=== PATIENT | female | born 1970 | race Caucasian/White ===

== ENCOUNTER 2017-02-27 06:42 | Day surgery (SDC) | payer BC ==
[~2017-02-27 06:42] MED LIST: Lactated Ringers 1,000 ML IV SCH; Lidocaine 1%/Sod Bicarbonate in NS 8.4% 1 ML Syringe PRN; Sodium Chloride 0.9% 10 ML Syringe FLUSH PRN
[2017-02-27] MEDS ORDERED: Lidocaine 1% 50 ML MDV ONE (06:50)
[2017-02-27] MEDS ORDERED: Bupivacaine 0.5% 30 ML SDV ONE (06:50)
[2017-02-27] MEDS ORDERED: Propofol 200 MG/20 ML SDV ONE (07:05)
[2017-02-27] MEDS ORDERED: Ondansetron 4 MG/2 ML SDV ONE (07:05)
[2017-02-27] MEDS ORDERED: ceFAZolin 1 GM Vial ONE (07:05)
[2017-02-27] MEDS ORDERED: Rocuronium 50 MG/5 ML Vial ONE (07:05)
[2017-02-27] MEDS ORDERED: Lactated Ringers 1,000 ML ONE (07:05)
[2017-02-27] MEDS ORDERED: Dexamethasone 4 MG/ML SDV ONE (07:05)
[2017-02-27] MEDS ORDERED: Midazolam 1 MG/ML 2 ML SDV ONE (07:06)
[2017-02-27] MEDS ORDERED: Ketorolac 30 MG/ML SDV ONE (07:06)
[2017-02-27] MEDS ORDERED: Lidocaine 1% 4 ML ONE (07:06)
[2017-02-27] MEDS ORDERED: fentaNYL 250 MCG/5 ML SDV ONE (07:06)
[2017-02-27] MEDS ORDERED: Famotidine 20 MG/2 ML SDV ONE (07:29)
[2017-02-27] MEDS ORDERED: Metoclopramide 10 MG/2 ML SDV ONE (07:46)
[2017-02-27] MEDS ORDERED: Succinylcholine 200 MG/10 ML MDV ONE (07:47)
--- NOTE | 2017-02-27 07:50 | PCM.PREANE ---
Preanesthetic Assessment - Anesthesia/Transfusion/Family Hx Anesthesia History: Prior Anesthesia Without Reaction Family History of Anesthesia Reaction: No Transfusion History: No Prior Transfusion(s) Intubation History: Unknown - Review of Systems General: No Symptoms Pulmonary: No Symptoms, Other (Sleep apnea/CPAP) Cardiovascular: No Symptoms Gastrointestinal: No Symptoms Neurological: No Symptoms Other: Reports: None, Depression, Anxiety - Physical Assessment NPO Status Date: 02/26/17 NPO Status Time: 22:00 Pulse: 66 O2 Sat by Pulse Oximetry: 96 Respiratory Rate: 16 Blood Pressure: 132/76 Temperature: 37.2 C Weight: 119 kg ASA Class: 2 Mental Status: Alert & Oriented x3 Airway Class: Mallampati = 1 Dentition: Reports: Normal Dentition Thyro-Mental Finger Breadths: 2 Mouth Opening Finger Breadths: 3 ROM/Head Extension: Full Lungs: Clear to Auscultation, Normal Respiratory Effort Cardiovascular: Regular Rate, Regular Rhythm - Lab Values: Entered. K 3.3 discussed with patient and her . She is aware and was instructed to increase potassium in her diet. Her primary care physician is aware. - Imaging/EKG Impressions: Reviewed - Allergies Allergies/Adverse Reactions: Allergies Allergy/AdvReac Type Severity Reaction Status Date / Time No Known Allergies Allergy Verified 02/27/17 08:04 - Anesthesia Plan Pre-Op Medication Ordered: Antacids, Anxiolytic - Acknowledgements Anesthesia Type Planned: General Anesthesia Pt an Appropriate Candidate for the Planned Anesthesia: Yes Alternatives and Risks of Anesthesia Discussed w Pt/Guardian: Yes Pt/Guardian Understands and Agrees with Anesthesia Plan: Yes PreAnesthesia Questionnaire HEENT History: Reports: None Cardiovascular History: Reports: Hypertension Respiratory History: Reports: Sleep Apnea Genitourinary History: Reports: None [employer] History: Reports: Musculoskeletal History: Reports: Other (See Below) Other Musculoskeletal History: degenerative disc disease Neurological History: Reports: None Psychiatric History: Reports: Anxiety, Depression Endocrine/Metabolic History: Reports: None Hematologic History: Reports: None Immunologic History: Reports: None Oncologic (Cancer) History: Reports: None Dermatologic History: Reports: None - Past Surgical History Head Surgeries/Procedures: Reports: None HEENT Surgical History: Reports: None Cardiovascular Surgical History: Reports: None Respiratory Surgical History: Reports: None GI Surgical History: Reports: Cholecystectomy, Colonoscopy Female Surgical History: Reports: Section, Hysterectomy Endocrine Surgical History: Reports: None Neurological Surgical History: Reports: None Musculoskeletal Surgical History: Reports: None Oncologic Surgical History: Reports: None - SUBSTANCE USE Smoking Status *Q: Current Every Day Smoker Tobacco Use Within Last Twelve Months: Cigarettes Recreational Drug Use History: No - HOME MEDS Home Medications: Home Meds ALPRAZolam [Alprazolam] 0.5 mg PO BID PRN 02/26/17 [History] Acetaminophen [Tylenol] 650 g PO QID PRN 02/26/17 [History] Cholecalciferol (Vitamin D3) [Vitamin D3] 5,000 unit PO DAILY 02/26/17 [History] Escitalopram Oxalate [Escitalopram Oxalate] 20 mg PO DAILY 02/26/17 [History] Fish Oil/Gatzke-3 Fatty Acids [Fish Oil 1,000 MG] 1,000 mg PO DAILY 02/26/17 [ History] Fluticasone Propionate [Flonase] 1 spray NASBOTH BID 02/26/17 [History] Hydrochlorothiazide [Hydrochlorothiazide] 12.5 mg PO DAILY 02/26/17 [History] Losartan/Hydrochlorothiazide [Losartan-HCTZ 50-12.5 MG] 1 tab PO DAILY 02/26/17 [History] Multivitamin [Daily Shadi] 1 tab PO DAILY 02/26/17 [History] Progesterone,Micronized [Progesterone] 100 mg PO DAILY 02/26/17 [History] Ranitidine HCl [Zantac] 300 mg PO BID 02/26/17 [History] Saw Locke 160 mg PO DAILY 02/26/17 [History] amLODIPine Besylate [Amlodipine Besylate] 10 mg PO DAILY 02/26/17 [History] - CURRENT (IN HOUSE) MEDS Current Meds: Current Medications Lactated Ringer's (Ringers, Lactated) 1,000 mls @ 125 mls/hr IV ASDIRECTED CARMEN Stop: 02/27/17 23:00 Last Admin: 02/27/17 07:30 Dose: 125 mls/hr Lidocaine/Sodium Bicarbonate (Buffered Lidocaine 1% In Ns 8.4%) 0.25 ml .XX ONETIME PRN PRN Reason: Prior to IV Start Stop: 02/27/17 18:00 Last Admin: 02/27/17 07:29 Dose: 0.25 ml Sodium Chloride (Saline Flush) 10 ml FLUSH ASDIRECTED PRN PRN Reason: Keep Vein Open Stop: 02/27/17 18:00 Discontinued Medications Bupivacaine HCl (Marcaine 0.5%) Confirm Administered Dose 30 ml .ROUTE .ST-MED ONE Stop: 02/27/17 06:51 Cefazolin Sodium (Ancef) Confirm Administered Dose 2 gm .ROUTE .STK-MED ONE Stop: 02/27/17 07:06 Dexamethasone (Dexamethasone) Confirm Administered Dose 4 mg .ROUTE .ST-MED ONE Stop: 02/27/17 07:06 Famotidine (Pepcid) Confirm Administered Dose 20 mg .ROUTE .ST-MED ONE Stop: 02/27/17 07:30 Fentanyl (Sublimaze) Confirm Administered Dose 250 mcg .ROUTE .ST-MED ONE Stop: 02/27/17 07:07 Lactated Ringer's (Ringers, Lactated) Confirm Administered Dose 1,000 mls @ as directed .ROUTE .ST-MED ONE Stop: 02/27/17 07:06 Lidocaine HCl (Xylocaine-Mpf 1%) Confirm Administered Dose 4 mls @ as directed .ROUTE .ST-MED ONE Stop: 02/27/17 07:07 Ketorolac Tromethamine (Toradol) Confirm Administered Dose 30 mg .ROUTE .ST- MED ONE Stop: 02/27/17 07:07 Lidocaine HCl (Xylocaine 1%) Confirm Administered Dose 50 ml .ROUTE .ST-MED ONE Stop: 02/27/17 06:51 Metoclopramide HCl (Reglan) Confirm Administered Dose 10 mg .ROUTE .ST-MED ONE Stop: 02/27/17 07:47 Midazolam HCl (Versed 1 Mg/Ml) Confirm Administered Dose 2 mg .ROUTE .ST-MED ONE Stop: 02/27/17 07:07 Ondansetron HCl (Zofran) Confirm Administered Dose 4 mg .ROUTE .ST-MED ONE Stop: 02/27/17 07:06 Propofol (Diprivan 20 Ml) Confirm Administered Dose 400 mg .ROUTE .STK-MED ONE Stop: 02/27/17 07:06 Rocuronium Frohna (Zemuron) Confirm Administered Dose 50 mg .ROUTE .STK-MED ONE Stop: 02/27/17 07:06 Succinylcholine Chloride (Quelicin) Confirm Administered Dose 200 mg .ROUTE .STK -MED ONE Stop: 02/27/17 07:48
[2017-02-27] MEDS ORDERED: fentaNYL 100 MCG/2 ML SDV IVPUSH PRN (09:08)
[2017-02-27] MEDS ORDERED: HYDROmorphone 0.5 MG/0.5 ML Syringe IVPUSH PRN (09:08)
[2017-02-27] MEDS ORDERED: diphenhydrAMINE 50 MG/ML SDV IVPUSH PRN (09:08)
[2017-02-27] MEDS ORDERED: fentaNYL 100 MCG/2 ML SDV ONE (09:48)
[2017-02-27] MEDS ORDERED: HYDROmorphone 1 MG/ML Syringe ONE (10:15)
--- NOTE | 2017-02-27 10:20 | CR ---
Left calcaneus: Two fluoroscopic spot views were obtained centered to the left calcaneus in lateral projection. Study obtained utilizing C-arm device. Study shows plantar spur. Previous surgery is noted within the posterior calcaneus. Soft tissue air noted from the surgical procedure. Fluoroscopy time given as 2.1 seconds. Impression: 1. Operative study as noted above. Diagnostic code #2
--- NOTE | 2017-02-27 10:32 | PCM.OPNOTE ---
- General Post-Op/Procedure Note Date of Surgery/Procedure: 02/27/17 Operative Procedure(s): 1.) Debridement/Decompression Achilles Tendon with Re- attachment with Suture Bridge, LEFT heel. 2.) Retro-Calcaneal Exostectomy, LEFT heel. 3.) Gastroc-Recessio, LEFT leg Pre Op Diagnosis: 1.) Calcific Achilles Tendonosis, LEFT heel. 2.) Achilles Tendonosis, LEFT heel. 3.) Gastrocnemius Equinus, LEFT heel Post-Op Diagnosis: Same Anesthesia Technique: General LMA, Local (10ccs 1:1 mixture 1% Lidocaine pl. + 0.5% Marcaine pl. - preoperatively 10ccs 1:1 mixture 1% Lidocaine pl. + 0.5% Marcaine pl. - postoperatively), MAC Primary Surgeon: García De Santiago II Anesthesia Provider: Judy Complications: None Condition: Good Free Text/Narrative:: Patient left the OR for recovery, PACU, with vital signs stable & vascular status grossly intact, LEFT foot/ankle.
[2017-02-27] MEDS ORDERED: Albuterol 6.7 GM Inhaler INH ONE (10:35)
--- NOTE | 2017-02-27 10:38 | PCM.POSTAN ---
POST ANESTHESIA ASSESSMENT - MENTAL STATUS Mental Status: Alert, Oriented - VITAL SIGNS Pulse Rate: 103 SaO2: 96 Resp Rate: 13 Blood Pressure: 137/89 Temperature: 37.2 C - RESPIRATORY Respiratory Status: Respiratory Rate WNL, Airway Patent, O2 Saturation Stable, Supplemental Oxygen - CARDIOVASCULAR CV Status: Pulse Rate WNL, Blood Pressure Stable - GASTROINTESTINAL GI Status: No Symptoms - PAIN Pain Score: 0 - POST OP HYDRATION Hydration Status: Adequate & Stable
[2017-02-27] MEDS ORDERED: Acetaminophen/oxyCODONE 325-5 MG Tab PO ONE (11:45)
[2017-02-27] MEDS ORDERED: Acetaminophen/oxyCODONE 325-5 MG Tab PO SCH (12:30)
--- NOTE | 2017-02-27 13:39 | PCM48HPAN ---
Post Anesthesia Note - EVALUATION WITHIN 48HRS OF ANESTHETIC Vital Signs in Normal Range: Yes Patient Participated in Evaluation: Yes Respiratory Function Stable: Yes Airway Patent: Yes Cardiovascular Function Stable: Yes Hydration Status Stable: Yes Pain Control Satisfactory: Yes Nausea and Vomiting Control Satisfactory: Yes Mental Status Recovered: Yes
--- NOTE | 2017-03-03 08:42 | OR ---
DATE OF OPERATION: 02/27/2017 SURGEON: García De Santiago II, DPM LOCATION: [facility]. ANESTHESIA: LMA general. ANESTHESIA PROVIDER: Brianna Albright CRNA. HEMOSTASIS: Left pneumatic thigh tourniquet at 300 mmHg pressure. PREOPERATIVE DIAGNOSIS: 1. 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 2. Painful and symptomatic Achilles tendinosis, left heel. 3. Painful and symptomatic gastrocnemius equinus, left leg. POSTOPERATIVE DIAGNOSIS: 1. 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 2. Painful and symptomatic Achilles tendinosis, left heel. 3. Painful and symptomatic gastrocnemius equinus, left leg. OPERATION PERFORMED: 1. Debridement and decompression Achilles tendon with reattachment using Arthrex suture bridge. 2. Retrocalcaneal exostectomy, left heel. 3. Gastroc recession, left leg. DESCRIPTION OF PROCEDURE: Upon arrival and admission to the hospital, the patient was examined and cleared for surgery by the assigned anesthesia provider. IV access was obtained in the preoperative area after which the patient received prophylactic antibiotics consisting of 3 g of Ancef IV piggyback. The patient was then brought to the OR via gurney and transferred onto the operating room table in the supine position. The patient was then given a combination of sedations and was intubated for LMA general anesthesia. The patient was then repositioned in the prone position. The patient then received 10 mL of a 1:1 mixture of 1% lidocaine plain and 0.5% Marcaine plain in the form of a local infiltrative block at the posterior aspect of the left heel and at the incision site 17 cm proximal to the insertion of the Achilles tendon for the gastroc recession. The left lower extremity was then wrapped at the thigh with cotton Webril padding in preparation for nonsterile pneumatic thigh tourniquet, which was then draped with a secure towel. The left lower extremity was then prepped and draped in the usual aseptic manner. The left lower extremity was then elevated and exsanguinated with the use of an Esmarch bandage before inflating the pneumatic thigh tourniquet to 300 mmHg pressure. The Esmarch was removed and the left lower extremity was placed back to the level of the operating room table. Attention was then directed to the posterior aspect of the left lower extremity at the gastroc aponeurosis approximately 15-17 cm from the insertion site of the Achilles tendon. An approximately 4 cm linear incision was made parallel to the longitudinal axis of the left lower extremity. This was a controlled depth skin incision taken down to the level of the subcutaneous structures with care taken to retract the vital neurovascular structures within the area as well as to cauterize and ligate all superficial bleeders as deemed necessary. Continued soft tissue dissection was then taken down to the level of the gastrocnemius aponeurosis where it was incised and released from medial to lateral producing a gap of approximately 1 cm with hyperdorsiflexion. Attention was then directed to the posterior aspect of the left heel where an approximately 7 cm curvilinear incision was created medial to the Montana's deformity and overlying the distal 1/3rd of the Achilles tendon, and then being brought perpendicular to a longitudinal axis just 1 cm distal to the insertion of the Achilles tendon. This was a controlled depth skin incision taken down to the level of subcutaneous structures with care taken to retract vital neurovascular structures within the area as well as to cauterize and ligate all superficial bleeders as deemed necessary. Continued dissection was taken down to the calcaneus and the calcaneal tendon insertion. The Achilles tendon was then removed from the posterior aspect of the calcaneus in full-thickness from dorsal and ventral and debrided, and debridement of all tendinopathy tissue. With the Achilles tendon being released distally and reflected proximally, it exposed the whole calcaneal tuberosity with the Montana's prominence. The retrocalcaneal bursa was excised from the area and the wound was copiously lavaged with sterile saline solution after hand rasps were undertaken to smooth to a fine contour this area. The Montana's prominence had been removed utilizing a microsagittal saw. The medial and lateral sides of the calcaneus were likewise smoothed to a fine contour and chamfered off. The bony calcaneus had been resected, was then prepared for the insertion of two 4.5 mm Bio-Corkscrew and tendon anchors, and these holes were then punched and tapped. These 2 holes were then centered about 1 cm proximal to the insertion of the Achilles tendon and central to the medial and lateral aspects of the Achilles tendon. The anchors were then inserted into the holes. The FiberWire sutures and needles were released then from the local bulk driver handles and pulled through the Achilles tendon after it had been positioned and reapproximated to its twenty-nine palms location. Mattress suture knots were then undertaken to bring the tendon down to the bone. Just distal to the end of the Achilles insertion site inferior to the corkscrew anchor placement, additional holes were drilled for disposal of 3.5 PushLock drill to create 2 holes for the distal row. One suture anchor from the proximal anchors was passed through the Achilles tendon and was brought to be incorporated with a hole for the distal suture anchors and an eyelet of the implant edge of the bone socket to remove all slack in the sutures and apply tension to the sutures so that the tissue loaded was compressed against the calcaneus. With appropriate tension maintained on the sutures, the medial button and the back of the local bulk driver handle would be struck with a mallet to dry the anchor into the bone and lock the sutures in place. These steps were then repeated for the other Bio-PushLock anchor with the remaining blue FiberWire. The wound was then copiously lavaged with sterile saline solution and closure of the skin incision site was undertaken with 3-0 Vicryl while the skin was reapproximated with 3-0 nylon in the form of horizontal and simple interrupted suture knots. Postoperative anesthesia consisted of an additional 10 mL of 0.5% Marcaine plain. Dressings then consisted of Betadine soaked Adaptic gauze, 4 x 4 gauze, [place], and [place] bandage. Upon completion of the surgery, the left pneumatic thigh tourniquet was deflated and it was noted that digits 1 through 5 of the left lower extremity became pink indicating normal vascular perfusion had returned. The patient appeared to tolerate the procedure and anesthesia well, and left the OR for recovery with vital signs being stable and vascular status intact digits 1 through 5 of the left lower extremity with no apparent complications. The patient also received a posterior splint about her left lower extremity as she will be nonweightbearing with crutches. In recovery, the patient received written and oral postoperative instructions as well as postoperative pain medication. Estimated blood loss of these procedures was 5 mL and considered negligible. There were no apparent obvious complications. ESTIMATED BLOOD LOSS: MMODAL /[id number]
== END 2017-02-27 13:20 | disposition home or self-care (01) ==
LOC: JD.SDS 06:42
PROVIDERS: ATTEND Podiatrist Foot & Ankle Surgery
DX: M92.62 Juvenile osteochondrosis of tarsus, left ankle (principal); M65.272 Calcific tendinitis, left ankle and foot; M21.6X2 Other acquired deformities of left foot; I10 Essential (primary) hypertension; F32.9 Major depressive disorder, single episode, unspecified; G47.30 Sleep apnea, unspecified; Z68.42 Body mass index [BMI] 45.0-49.9, adult; F41.9 Anxiety disorder, unspecified; Z90.710 Acquired absence of both cervix and uterus; F17.210 Nicotine dependence, cigarettes, uncomplicated; Z99.89 Dependence on other enabling machines and devices
CPT/HCPCS: 27606; 27687; 28118; 36415; 76000; 80053; A9270; C1713; J0330; J0690; J1100; J1170; J1885; J2250; J2405; J2765; J3010; J7120; 01474; J2704